=== PATIENT | male | born 1965 | race Caucasian/White ===

== ENCOUNTER 2016-08-30 12:08 | Emergency (ER) | payer SELFPAY ==
[2016-08-30] MEDS ORDERED: ONDANSETRON INJ 4 MG/2 ML VIAL IV ONE (12:41)
[2016-08-30] MEDS ORDERED: SODIUM CHLORIDE 0.9% 1000ML 1,000 ML IVS ONE ×2 (12:41→14:40)
--- NOTE | 2016-08-30 12:48 | ED.PDOC ---
History of Present Illness - General Chief Complaint: Abdominal Pain Stated Complaint: L abdominal discomfort Time Seen by Provider: 08/30/16 12:35 Information Source: patient, RN notes reviewed, Vital Signs reviewed Exam Limitations: no limitations - History of Present Illness Initial Comments: Patient comes in with c/o of LUQ abdominal pain that started 3 days ago. He describes it as pressure. He tried multiple OTC medications without relief. No fever or chills. + nausea, no vomiting. Chronic diarrhea w/o recent change. + urinary frequency last but none since. Abdominal Pain Onset Location: LUQ Pain Radiation: LLQ Quality: moderate, steady, other - pressure Timing/Duration: days - 3 Improving Factors: nothing Worsening Factors: nothing Associated Symptoms: diarrhea, nausea/vomiting Review of Systems - Review of Systems Constitutional: Denies: chills, diaphoresis, fever, malaise EENTM: States: no symptoms reported Respiratory: States: no symptoms reported. Denies: short of breath Cardiology: States: no symptoms reported. Denies: chest pain Gastrointestinal/Abdominal: States: see HPI, abdominal pain, diarrhea, nausea. Denies: vomiting Genitourinary: States: frequency. Denies: dysuria, pain Musculoskeletal: States: no symptoms reported Skin: States: no symptoms reported All other Systems: No Change from Baseline Past Medical History (General) - Patient Medical History Hx Stroke: No Hx Congestive Heart Failure: No Hx Diabetes: No Hx Gastroesophageal Reflux: - Hx H pylori - Vaccination History Hx Influenza Vaccination: No Hx Pneumococcal Vaccination: No - Social History Hx Tobacco Use: Yes Family Medical History - Family History Father Living Status: Still Living Hx Family Hypertension: Yes Hx Cardiac Disease: Yes - ID, CABG Physical Exam - Physical Exam General Appearance: Alert, Comfortable, No apparent distress, Well Developed, Well Groomed, Well Hydrated, Well Nourished Neck: non-tender, full range of motion, supple, normal inspection Respiratory: lungs clear, normal breath sounds, no respiratory distress, no accessory muscle use Cardiovascular/Chest: regular rate, rhythm, no gallop, no JVD, no murmur Gastrointestinal/Abdominal: normal bowel sounds, soft, no organomegaly, no pulsatile mass, tenderness - LUQ w/o guarding or rebound Back Exam: no CVA tenderness, no vertebral tenderness Extremity: normal range of motion, normal inspection Neurologic: alert, normal mood/affect, oriented x 3 Skin Exam: normal color, warm/dry Comments: Vital Signs 08/30/16 12:21 Temperature 98.2 F Pulse Rate [ 66 Left Radial] Respiratory 20 Rate Blood Pressure 167/88 [Left Arm] O2 Sat by Pulse 99 Oximetry Progress - Progress Progress: 08/30/16 13:[address] and labs. Will try GI cocktail. 08/30/16 13:52 No change with GI cocktail. Will try IV protonix. 08/30/16 14:38 Some improvement with Protonix. Still awaiting UA. Patient reports no urge to urinate after first L of NS. Will give a second L bolus. Will also get EKG and run cardiac enzymes to ere on the cautious side. 08/30/16 15:39 Patient reports Protonix helped briefly but pain is returning. Will check Amylase & Lipase. - Results/Orders Results/Orders: Laboratory Tests 08/30/16 08/30/16 08/30/16 12:40 12:40 14:45 WBC 5.0 RBC 4.81 Hgb 15.3 Hct 43.9 MCV 91.4 MCH 31.7 H MCHC 34.7 RDW 14.5 Plt Count 127 L MPV 8.9 Absolute Neuts (auto) 3.00 Absolute Lymphs (auto) 1.40 Absolute Monos (auto) 0.30 Absolute Eos (auto) 0.10 Absolute Basos (auto) 0.10 Neutrophils % 60.4 Lymphocytes % 29.1 Monocytes % 6.5 Eosinophils % 2.9 Basophils % 1.1 Sodium 140 Potassium 3.3 L Chloride 105 Carbon Dioxide 27 Anion Gap 11.3 L BUN 9 Creatinine 1.00 BUN/Creatinine Ratio 9.0 L Random Glucose 108 H Serum Osmolality 278.6 Calcium 8.8 Total Bilirubin 1.0 AST 39 ALT 40 Alkaline Phosphatase 86 Creatine Kinase CK-MB (CK-2) CK-MB (CK-2) % Troponin I Serum Total Protein 7.3 Albumin 4.0 Globulin 3.3 Albumin/Globulin Ratio 1.2 Amylase 69 Lipase 26 Urine Color Urine Appearance Urine pH Ur Specific [place] Urine Protein Urine Glucose (UA) Urine Ketones Urine Blood Urine Nitrite Urine Bilirubin Urine Urobilinogen Ur Leukocyte Esterase Urine RBC Urine WBC Ur Epithelial Cells Amorphous Sediment Urine Bacteria Urine Mucus 08/30/16 08/30/16 14:55 16:05 WBC RBC Hgb Hct MCV MCH MCHC RDW Plt Count MPV Absolute Neuts (auto) Absolute Lymphs (auto) Absolute Monos (auto) Absolute Eos (auto) Absolute Basos (auto) Neutrophils % Lymphocytes % Monocytes % Eosinophils % Basophils % Sodium Potassium Chloride Carbon Dioxide Anion Gap BUN Creatinine BUN/Creatinine Ratio Random Glucose Serum Osmolality Calcium Total Bilirubin AST ALT Alkaline Phosphatase Creatine Kinase 74 CK-MB (CK-2) 1.1 CK-MB (CK-2) % Not Reportable Troponin I < 0.02 Serum Total Protein Albumin Globulin Albumin/Globulin Ratio Amylase Lipase Urine Color Dk yellow Urine Appearance Clear Urine pH 5.5 Ur Specific [place] >= 1.030 Urine Protein Negative Urine Glucose (UA) Negative Urine Ketones Negative Urine Blood Negative Urine Nitrite Negative Urine Bilirubin Small H Urine Urobilinogen 0.2 Ur Leukocyte Esterase Negative Urine RBC 0-1 Urine WBC 0 Ur Epithelial Cells 0-1 Amorphous Sediment 2+ Urine Bacteria 0 Urine Mucus Moderate - EKG/XRAY/CT EKG: Dennis, Sinus, no ST T wave changes XRAY: chest - normal per Rad CT Ordered: Yes - Abd/Pel: Horseshoe kidney w/o hydronephrosis or stone, o/w nl CT Departure - Departure Clinical Impression: Abdominal pain Qualifiers: Abdominal location: left upper quadrant Qualified Code(s): R10.12 - Left upper quadrant pain Time of Disposition: 16:55 Disposition: Discharge to Home or Self Care Condition: Good Departure Forms: ED Discharge - Pt. Copy, Patient Portal Self Enrollment Instructions: DI for Abdominal Pain-Adult Diet: bland diet Activity: increase activity as tolerated Prescriptions: Pantoprazole Tablet [Protonix] 40 mg PO QAM #30 tab Sucralfate Suspension [Carafate Suspension] 1 gm PO QID #400 ml Home Medications: Ambulatory Orders Pantoprazole Tablet [Protonix] 40 mg PO QAM #30 tab 08/30/16 Sucralfate Suspension [Carafate Suspension] 1 gm PO QID #400 ml 08/30/16 Additional Instructions: Follow up with your business development.
--- NOTE | 2016-08-30 13:05 | CT ---
Study: CT abdomen and pelvis. Indication: LUQ pain Technique: CT of the abdomen and pelvis obtained without intravenous contrast. This exam was performed according to our departmental dose-optimization program, which includes automated exposure control, adjustment of the mA and/or kV according to patient size and/or use of iterative reconstruction technique. Comparison: None. Findings: Lung bases hyperexpanded. Inferior heart, liver, pancreas, spleen, adrenal glands, bladder, and prostate gland demonstrate a normal unenhanced CT appearance. Gallbladder either contracted or surgically absent. Horseshoe kidney without hydronephrosis or nephrolithiasis. Stomach, small bowel, colon, and appendix unremarkable. No free fluid. No free air. No pathologically enlarged lymphadenopathy. Atherosclerosis iliac arteries noted. L5-S1 disc disease noted. Impression: Horseshoe kidney without CT evidence of hydronephrosis or nephrolithiasis. Atherosclerosis iliac arteries. Electronically signed by: Lukasz Sykes MD 08/30/2016 1:03 PM CDT
[2016-08-30 13:25] VITALS: O2SAT 97
[2016-08-30] MEDS ORDERED: LIDOCAINE VIS-MYLANTA 30 ML UD PO ONE (13:26)
[2016-08-30] MEDS ORDERED: PANTOPRAZOLE SODIUM IV 40 MG VIAL IV ONE (13:53)
[2016-08-30] MEDS ORDERED: MORPHINE SULFATE INJ 10 MG/ML VIAL IV ONE (16:06)
--- NOTE | 2016-08-30 16:47 | RAD ---
EXAM DESCRIPTION: Chest,2 Views CLINICAL HISTORY: cough, left upper quadrant abdominal pain COMPARISON: None Available. TECHNIQUE: PA/lateral FINDINGS: Cardiomediastinal silhouette and pulmonary vascularity are within normal limits. Lungs are clear without focal consolidations. Bilateral costophrenic angles are sharp. No pneumothorax. Visualized osseous structures show no destructive lesions. IMPRESSION: No radiographic evidence for acute cardiopulmonary process. Electronically signed by: Pedor Brown MD 08/30/2016 4:46 PM CDT
[2016-08-30 17:19] VITALS: BP 126/75; TEMP 98.3
== END 2016-08-30 17:20 | disposition home or self-care (01) ==
LOC: ER 12:08
DX: R10.12 Left upper quadrant pain (principal); Z87.891 Personal history of nicotine dependence
CPT/HCPCS: 36415; 71020; 74176; 80053; 81001; 82150; 82550; 82553; 83690; 84484; 85025; 93005; J2270; J2405; J7030

== ENCOUNTER 2020-02-02 09:08 | Emergency (ER) | payer OTHER ==
[2020-02-02] MEDS ORDERED: KETOROLAC TROMETHAMINE INJ 30 MG/ML VIAL IM ONE (09:38)
--- NOTE | 2020-02-02 10:05 | RAD ---
EXAM: XR Left Knee Complete, 3 Views CLINICAL HISTORY: pain x6 days TECHNIQUE: 3 views obtained. COMPARISON: No relevant prior studies available. FINDINGS: Bones/joints: No abnormality noted. No acute fracture. No dislocation. Soft tissues: No abnormality noted. IMPRESSION: No abnormality noted. Electronically signed by: Frances Larios MD 02/02/2020 10:04 AM [facility]
--- NOTE | 2020-02-02 10:13 | ED.PDOC ---
History of Present Illness - General Chief Complaint: Lower Extremity Injury Stated Complaint: left knee pain Time Seen by Provider: 02/02/20 09:12 Source: patient Exam Limitations: no limitations - History of Present Illness Initial Comments: The patient is a 54-year-old male presented to emergency room secondary to severe left knee pain for the last 5 or 6 days. The patient has been ambulatory on it for that time.. He does have severe tenderness to palpation surrounding it and there is obviously some swelling around the knee. No palpable deformity. He does describe locking and popping sensations. It started when he knelt down on the knee very quickly on a hard surface. There is no tenderness to palpation or swelling over the patella. Passive and active range of motion are preserved. I am able to discern little further information from the physical exam secondary to the diffuse nature of the inflammation at this point in time. Additionally the patient does have guarding with testing of the ligaments. I believe most likely he has a medial meniscal tear based on the symptoms with possible associated ligamentous derangement. He is neurovascula rly preserved distally. Timing/Duration: 1 week Severity: moderate Worsening Factors: movement Associated Symptoms: denies symptoms Allergies/Adverse Reactions: Allergies NO KNOWN ALLERGY Allergy (Verified 02/02/20 09:25) Home Medications: Ambulatory Orders Tramadol HCl 50 mg PO Q8HR PRN #20 tab 02/02/20 Review of Systems - Review of Systems Constitutional: States: no symptoms reported EENTM: States: no symptoms reported Respiratory: States: no symptoms reported Cardiology: States: no symptoms reported Gastrointestinal/Abdominal: States: no symptoms reported Genitourinary: States: no symptoms reported Musculoskeletal: States: see HPI Skin: States: no symptoms reported Neurological: States: no symptoms reported Endocrine: States: no symptoms reported All other Systems: No Change from Baseline Past Medical History (General) - Patient Medical History Hx Stroke: No Hx Congestive Heart Failure: No Hx Diabetes: No Hx Gastroesophageal Reflux: - Hx H pylori Surgical History: no surgical history - Vaccination History Hx Influenza Vaccination: No Hx Pneumococcal Vaccination: No - Social History Hx Tobacco Use: Yes Hx Alcohol Use: Yes Hx Substance Use: Yes - Activities of Daily Living Hospice Agency (if applicable):: None - Female History Patient is a Female of Child Bearing Age (10 -59 yrs old): No Family Medical History - Family History Father Living Status: Still Living Hx Family Hypertension: Yes Hx Cardiac Disease: Yes - DC, CABG Physical Exam - Physical Exam General Appearance: Alert, Comfortable, No apparent distress Eye Exam: bilateral normal Ears, Nose, Throat: hearing grossly normal, normal pharynx Neck: full range of motion, supple Respiratory: no respiratory distress, no accessory muscle use Cardiovascular/Chest: normal peripheral pulses, no edema Peripheral Pulses: radial,right: 2+, radial,left: 2+, dorsalis pedis,right: 2+, dorsalis pedis,left: 2+ Gastrointestinal/Abdominal: non tender, soft Rectal Exam: deferred Extremity: normal range of motion, no pedal edema, no calf tenderness, normal capillary refill, other - See history of present illness. 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 Secondary to the diffuse inflammation and guarding, I am unable to obtain a good exam to pinpoint the definite source of the derangement, however based on history I believe he at least most likely has a medial meniscal tear. He is going to be placed in a knee immobilizer. He does need to follow-up with orthopedics in the coming week. He does need to do all bending with weight on h is good knee. Oral anti-inflammatory such as Motrin or Aleve can help reduce inflammation. He does need to do range of motion exercises with the knee while he has no weight bearing on it. He will be written for short prescription for tramadol for the next few days for as needed use, though the Aleve will likely provide more relief. X-rays of the knee show no acute bony derangement. No evidence of clinical infection. ER warnings are given. [email or web address] [id number] 02/02/20 10:20 [employer] aware consulted - Results/Orders Results/Orders: X-ray of the left knee shows no acute bony derangement. Departure - Departure Clinical Impression: Injury of knee, left Qualifiers: Encounter type: initial encounter Qualified Code(s): S89.92XA - Unspecified injury of left lower leg, initial encounter Disposition: Discharge to Home or Self Care Condition: Fair Departure Forms: ED Discharge - Pt. Copy, Patient Portal Self Enrollment Instructions: DI for Leg Pain, Meniscal Tear (DC) Diet: regular diet Activity: no pushing/pulling with affected limb Prescriptions: Tramadol HCl 50 mg PO Q8HR PRN #20 tab PRN Reason: Moderate Pain Home Medications: Ambulatory Orders Tramadol HCl 50 mg PO Q8HR PRN #20 tab 02/02/20 Additional Instructions: The patient is a 54-year-old male presented emergency room secondary to left knee pain of almost a weeks duration, that started acutely while at work. Secondary to the diffuse inflammation and guarding, I am unable to obtain a good exam to pinpoint the definite source of the derangement, however based on history I believe he at least most likely has a medial meniscal tear. He is going to be placed in a knee immobilizer. He does need to follow-up with orthopedics in the coming week. He does need to do all bending with weight on his good knee. Oral anti-inflammatory such as Motrin or Aleve can help reduce inflammation. He does need to do range of motion exercises with the knee while he has no weight bearing on it. He will be written for short prescription for tramadol for the next few days for as needed use, though the Aleve will likely provide more relief. X-rays of the knee show no acute bony derangement. No evidence of clinical infection. ER warnings are given.
[2020-02-02 10:40] VITALS: BP 127/90; TEMP 97.9; O2SAT 99
== END 2020-02-02 10:40 | disposition home or self-care (01) ==
LOC: ER 09:08
DX: S89.92XA Unspecified injury of left lower leg, initial encounter (principal); Z87.891 Personal history of nicotine dependence; X58.XXXA Exposure to other specified factors, initial encounter; Y92.9 Unspecified place or not applicable
CPT/HCPCS: 73562; J1885